=== PATIENT | male | born 1965 | race Hispanic/Latino ===

== ENCOUNTER 2020-11-25 08:29 | Day surgery (SDC) | payer OTHER ==
[2020-11-25] MEDS ORDERED: LIDOCAINE HCL 2% 100 MG/5 ML IJ ONE (08:30)
[2020-11-25] MEDS ORDERED: DIPRIVAN 200 MG/20 ML IV ONE (10:07)
--- NOTE | 2020-11-25 11:24 | XRAY ---
9 seconds fluoroscopy time in surgery for bilateral L4-S1 MBB.
--- NOTE | 2020-11-25 11:25 | XRAY ---
Indication: Bilateral L4-S1 MBB. Intraoperative fluoroscopy provided for 9 seconds. Single digital spot image submitted for interpretation demonstrates posterior needle tips projecting over the expected left and right L4-S1 nerve roots. Correlate with intraoperative findings/report.
[2020-11-25] MEDS ORDERED: Lactated Ringers 1,000 ML IV ONE (16:29)
== END 2020-11-25 10:37 | disposition home or self-care (01) ==
LOC: SDC-PAIN 08:29
PROVIDERS: ATTEND Psychiatry & Neurology Pain Medicine
DX: M47.816 Spondylosis without myelopathy or radiculopathy, lumbar region (principal); E11.9 Type 2 diabetes mellitus without complications; I10 Essential (primary) hypertension; I25.10 Atherosclerotic heart disease of native coronary artery without angina pectoris; G47.30 Sleep apnea, unspecified; Z79.899 Other long term (current) drug therapy
CPT/HCPCS: 64493; 64494; 72020; 77002; 82947; J2704

== ENCOUNTER 2021-01-20 07:49 | Day surgery (SDC) | payer OTHER ==
[2021-01-20] MEDS ORDERED: BUPIVACAINE 0.5% VIAL IJ ONE (07:50)
[2021-01-20] MEDS ORDERED: DIPRIVAN 200 MG/20 ML IV ONE (09:30)
--- NOTE | 2021-01-20 10:38 | XRAY ---
Indication: Bilateral L4-S1 MBB. Intraoperative fluoroscopy provided for 10 seconds. Single digital spot image submitted for interpretation demonstrates posterior needle tips projecting over the expected left and right L4-S1 nerve roots. Correlate with intraoperative findings/report.
--- NOTE | 2021-01-20 11:55 | XRAY ---
10 seconds of fluoroscopy was used in surgery for a bilateral L4-L5, L5-S1 MBB.
[2021-01-20] MEDS ORDERED: Lactated Ringers 1,000 ML IV ONE (16:00)
== END 2021-01-20 09:56 | disposition home or self-care (01) ==
LOC: SDC-PAIN 07:49
PROVIDERS: ATTEND Psychiatry & Neurology Pain Medicine
DX: M47.816 Spondylosis without myelopathy or radiculopathy, lumbar region (principal); I10 Essential (primary) hypertension; I25.10 Atherosclerotic heart disease of native coronary artery without angina pectoris; E11.9 Type 2 diabetes mellitus without complications; G47.30 Sleep apnea, unspecified; Z79.899 Other long term (current) drug therapy
CPT/HCPCS: 64493; 64494; 72020; 77002; 82947; J2704

== ENCOUNTER 2021-03-03 06:42 | Day surgery (SDC) | payer OTHER ==
[2021-03-03] MEDS ORDERED: Depo-Medrol 40 MG/ML IM ONE (06:43)
[2021-03-03] MEDS ORDERED: Xylocaine 1% Vial 30 ML PF IJ ONE (06:43)
[2021-03-03] MEDS ORDERED: BUPIVACAINE 0.5% VIAL IJ ONE (06:43)
[2021-03-03] MEDS ORDERED: DIPRIVAN 200 MG/20 ML IV ONE ×2 (07:52→08:12)
--- NOTE | 2021-03-03 10:06 | XRAY ---
Indication: Right L4-S1 RFA. Intraoperative fluoroscopy provided for 30 seconds. 3 digital spot images submitted for interpretation demonstrates posterior needle tips projecting over the expected right L4-S1 nerve roots. Correlate with intraoperative findings/report.
--- NOTE | 2021-03-03 10:11 | XRAY ---
30 seconds fluoroscopy time in surgery for right L4-S1 RFA.
[2021-03-03] MEDS ORDERED: Lactated Ringers 1,000 ML IV ONE (11:40)
== END 2021-03-03 08:38 | disposition home or self-care (01) ==
LOC: SDC-PAIN 06:42
PROVIDERS: ATTEND Psychiatry & Neurology Pain Medicine
DX: M47.816 Spondylosis without myelopathy or radiculopathy, lumbar region (principal); E11.9 Type 2 diabetes mellitus without complications; Z79.899 Other long term (current) drug therapy
CPT/HCPCS: 64635; 64636; 72100; 77002; 82947; J1030; J2001; J2704

== ENCOUNTER 2021-03-17 06:53 | Day surgery (SDC) | payer OTHER ==
[2021-03-17] MEDS ORDERED: BUPIVACAINE 0.5% VIAL IJ ONE (06:54)
[2021-03-17] MEDS ORDERED: Xylocaine 1% Vial 30 ML PF IJ ONE (06:54)
[2021-03-17] MEDS ORDERED: Depo-Medrol 40 MG/ML IM ONE (06:54)
[2021-03-17] MEDS ORDERED: DIPRIVAN 200 MG/20 ML IV ONE ×2 (07:58→08:24)
--- NOTE | 2021-03-17 10:18 | XRAY ---
Indication: Left L4-S1 RFA. Intraoperative fluoroscopy provided for 33 seconds. 3 digital spot image submitted for interpretation demonstrates posterior needle tips projecting over the expected left L4-S1 nerve roots. Correlate with intraoperative findings/report.
--- NOTE | 2021-03-17 12:43 | XRAY ---
33 seconds fluoroscopy time in surgery for left L4-S1 RFA.
[2021-03-17] MEDS ORDERED: Lactated Ringers 1,000 ML IV ONE (16:33)
== END 2021-03-17 08:48 | disposition home or self-care (01) ==
LOC: SDC-PAIN 06:53
PROVIDERS: ATTEND Psychiatry & Neurology Pain Medicine
DX: M47.817 Spondylosis without myelopathy or radiculopathy, lumbosacral region (principal); E11.9 Type 2 diabetes mellitus without complications; Z79.899 Other long term (current) drug therapy
CPT/HCPCS: 72100; 77002; 82947; J1030; J2001; J2704

== ENCOUNTER 2021-06-09 06:48 | Day surgery (SDC) | payer OTHER ==
[2021-06-09] MEDS ORDERED: BUPIVACAINE 0.5% VIAL IJ ONE (06:49)
[2021-06-09] MEDS ORDERED: Depo-Medrol 40 MG/ML IM ONE (06:49)
[2021-06-09] MEDS ORDERED: DIPRIVAN 200 MG/20 ML IV ONE (08:34)
--- NOTE | 2021-06-09 10:23 | XRAY ---
Indication: Bilateral SI joint injections. Intraoperative fluoroscopy provided for 36 seconds. 4 digital spot images submitted for interpretation demonstrates posterior needle tip projecting over the inferior left and right SI joints. Correlate with intraoperative findings/report. Incidental partially visualized left acetabular screw.
--- NOTE | 2021-06-09 10:44 | XRAY ---
36 seconds fluoroscopy time in surgery for injections of both SI joints.
[2021-06-09] MEDS ORDERED: Lactated Ringers 1,000 ML IV ONE (12:24)
== END 2021-06-09 09:05 | disposition home or self-care (01) ==
LOC: SDC-PAIN 06:48
PROVIDERS: ATTEND Psychiatry & Neurology Pain Medicine
DX: M46.1 Sacroiliitis, not elsewhere classified (principal); E11.9 Type 2 diabetes mellitus without complications; Z79.899 Other long term (current) drug therapy
CPT/HCPCS: 27096; 72202; 77002; 82947; G0260; J1030; J2704

== ENCOUNTER 2021-09-30 07:19 | Day surgery (SDC) | payer OTHER ==
[2021-09-30] MEDS ORDERED: BUPIVACAINE 0.5% VIAL IJ ONE (07:20)
[2021-09-30] MEDS ORDERED: Depo-Medrol 40 MG/ML IM ONE (07:20)
[2021-09-30] MEDS ORDERED: Lactated Ringers 1,000 ML IV ONE (08:15)
[2021-09-30] MEDS ORDERED: DIPRIVAN 200 MG/20 ML IV ONE (08:49)
--- NOTE | 2021-10-01 09:57 | XRAY ---
22 seconds fluoroscopy time in surgery for injections of both SI joints.
--- NOTE | 2021-10-04 08:53 | XRAY ---
Indication: Bilateral SI joint injection. Intraoperative fluoroscopy provided for 22 seconds. 5 digital spot image submitted for interpretation demonstrates posterior needle tip projecting over the inferior left and right SI joint. Correlate with intraoperative findings/report. Incidental partially visualized left hip arthroplasty.
== END 2021-09-30 09:10 | disposition home or self-care (01) ==
LOC: SDC-PAIN 07:19
PROVIDERS: ATTEND Psychiatry & Neurology Pain Medicine
DX: M46.1 Sacroiliitis, not elsewhere classified (principal); E11.9 Type 2 diabetes mellitus without complications; Z79.899 Other long term (current) drug therapy
CPT/HCPCS: 27096; 72202; 77002; 82947; G0260; J1030; J2704

== ENCOUNTER 2022-01-12 07:42 | Day surgery (SDC) | payer OTHER ==
[2022-01-12] MEDS ORDERED: Marcaine Mpf 0.5% Vial 30 Ml IJ ONE (07:43)
[2022-01-12] MEDS ORDERED: Depo-Medrol 40 MG/ML IM ONE (07:43)
[2022-01-12] MEDS ORDERED: DIPRIVAN 200 MG/20 ML IV ONE (09:05)
[2022-01-12] MEDS ORDERED: Lactated Ringers 1,000 ML IV ONE (10:23)
--- NOTE | 2022-01-12 11:38 | XRAY ---
Indication: Bilateral SI joint injection. Intraoperative fluoroscopy provided for 18 seconds. 4 digital spot image submitted for interpretation demonstrates posterior needle tip projecting over the inferior left and right SI joint. Correlate with intraoperative findings/report. Incidental partially visualized left hip arthroplasty.
--- NOTE | 2022-01-12 12:00 | XRAY ---
18 seconds of fluoroscopy was used in surgery for a bilateral sacroiliac joint injection.
== END 2022-01-12 09:27 | disposition home or self-care (01) ==
LOC: SDC-PAIN 07:42
PROVIDERS: ATTEND Psychiatry & Neurology Pain Medicine
DX: M46.1 Sacroiliitis, not elsewhere classified (principal); E11.9 Type 2 diabetes mellitus without complications; Z79.899 Other long term (current) drug therapy
CPT/HCPCS: 27096; 72202; 77002; 82947; G0260; J1030; J2704

== ENCOUNTER 2022-04-06 07:26 | Day surgery (SDC) | payer OTHER ==
[2022-04-06] MEDS ORDERED: Depo-Medrol 40 MG/ML IM ONE (07:27)
[2022-04-06] MEDS ORDERED: XYLOCAINE-MPF 1% 5ML SDV IJ ONE (07:27)
[2022-04-06] MEDS ORDERED: DIPRIVAN 200 MG/20 ML IV ONE (08:56)
--- NOTE | 2022-04-06 10:01 | XRAY ---
Indication: Caudal TYSON. Intraoperative fluoroscopy provided for 18 seconds. 2 digital spot images submitted for interpretation demonstrates caudal needle tip projecting over the mid sacrum. Small amount of contrast injected for needle tip placement. Correlate with intraoperative findings/report.
--- NOTE | 2022-04-06 10:31 | XRAY ---
18 seconds of fluoroscopy was used in surgery for a caudal TYSON.
[2022-04-06] MEDS ORDERED: Lactated Ringers 1,000 ML IV ONE (10:57)
== END 2022-04-06 09:30 | disposition home or self-care (01) ==
LOC: SDC-PAIN 07:26
PROVIDERS: ATTEND Psychiatry & Neurology Pain Medicine
DX: M54.16 Radiculopathy, lumbar region (principal); E11.9 Type 2 diabetes mellitus without complications; Z79.899 Other long term (current) drug therapy
CPT/HCPCS: 62323; 72220; 77003; 82947; J1030; J2704; Q9966

== ENCOUNTER 2022-08-24 07:43 | Day surgery (SDC) | payer OTHER ==
[2022-08-24] MEDS ORDERED: Depo-Medrol 40 MG/ML IM ONE (07:44)
[2022-08-24] MEDS ORDERED: Sodium Chloride 0.9(Preservative Free) 10 ML IJ ONE (07:44)
[2022-08-24] MEDS ORDERED: Pepcid 20 MG VIAL IV ONE (08:21)
[2022-08-24] MEDS ORDERED: Reglan 10 MG/2 ML ONE (08:21)
[2022-08-24] MEDS ORDERED: DIPRIVAN 200 MG/20 ML IV ONE (09:03)
--- NOTE | 2022-08-24 09:54 | XRAY ---
15 seconds of fluoroscopy was used in surgery for a caudal TYSON.
--- NOTE | 2022-08-24 09:54 | XRAY ---
Indication: Caudal TYSON. Intraoperative fluoroscopy provided for 15 seconds. 3 digital spot images submitted for interpretation demonstrates caudal needle tip projecting mid sacrum. Small amount of contrast injected for needle tip placement. Correlate with intraoperative findings/report.
[2022-08-24] MEDS ORDERED: Lactated Ringers 1,000 ML IV ONE (13:10)
== END 2022-08-24 09:30 | disposition home or self-care (01) ==
LOC: SDC-PAIN 07:43
PROVIDERS: ATTEND Psychiatry & Neurology Pain Medicine
DX: M46.1 Sacroiliitis, not elsewhere classified (principal); E11.9 Type 2 diabetes mellitus without complications; Z79.899 Other long term (current) drug therapy
CPT/HCPCS: 62323; 72220; 77003; 82947; J1030; J2704; Q9966

== ENCOUNTER 2023-02-08 07:51 | Day surgery (SDC) | payer OTHER ==
[2023-02-08] MEDS ORDERED: BUPIVACAINE 0.5% VIAL IJ ONE (07:52)
[2023-02-08] MEDS ORDERED: Depo-Medrol 40 MG/ML IM ONE (07:52)
[2023-02-08] MEDS ORDERED: DIPRIVAN 200 MG/20 ML IV ONE (09:31)
[2023-02-08] MEDS ORDERED: Xylocaine-Mpf 2% 5 Ml Vial ONE (09:36)
[2023-02-08] MEDS ORDERED: Lactated Ringers 1,000 ML IV ONE (10:51)
--- NOTE | 2023-02-08 11:52 | XRAY ---
Indication: Right SI joint and right hip injection. Intraoperative fluoroscopy provided for 27 seconds. 4 digital spot image submitted for interpretation demonstrates posterior needle tip project over the right SI joint. Second needle tip projects lateral to right femur neck with small amount of contrast injected for needle tip placement. Correlate with intraoperative findings/report.
--- NOTE | 2023-02-08 13:02 | XRAY ---
27 seconds of fluoroscopy was used in surgery for a right sacroiliac joint and right intra-articular hip injection.
== END 2023-02-08 10:03 | disposition home or self-care (01) ==
LOC: SDC-PAIN 07:51
PROVIDERS: ATTEND Psychiatry & Neurology Pain Medicine
DX: M16.11 Unilateral primary osteoarthritis, right hip (principal); M46.1 Sacroiliitis, not elsewhere classified; E11.9 Type 2 diabetes mellitus without complications; Z79.899 Other long term (current) drug therapy
CPT/HCPCS: 20610; 27096; 73501; 77002; 82947; G0260; J1030; J2704; Q9966

== ENCOUNTER 2023-06-14 06:47 | Day surgery (SDC) | payer OTHER ==
[2023-06-14] MEDS ORDERED: Depo-Medrol 40 MG/ML IM ONE (06:48)
[2023-06-14] MEDS ORDERED: LIDOCAINE HCL 1% 50 MG/5 ML VL PF IJ ONE (06:48)
[2023-06-14] MEDS ORDERED: BUPIVACAINE 0.5% VIAL IJ ONE (06:48)
[2023-06-14] MEDS ORDERED: DIPRIVAN 200 MG/20 ML IV ONE ×2 (08:04→08:18)
[2023-06-14] MEDS ORDERED: Lactated Ringers 1,000 ML IV ONE (10:32)
--- NOTE | 2023-06-14 11:44 | XRAY ---
Indication: Right L4-S1 RFA. Intraoperative fluoroscopy provided for 31 seconds. 8 digital spot images submitted for interpretation demonstrates posterior needle tips projecting over the expected right L4-S1 nerve roots. Correlate with intraoperative findings/report.
--- NOTE | 2023-06-14 11:50 | XRAY ---
31 seconds of fluoroscopy was used in surgery for a right L4-S1 RFA.
== END 2023-06-14 08:43 | disposition home or self-care (01) ==
LOC: SDC-PAIN 06:47
PROVIDERS: ATTEND Psychiatry & Neurology Pain Medicine
DX: M47.816 Spondylosis without myelopathy or radiculopathy, lumbar region (principal); E11.9 Type 2 diabetes mellitus without complications; Z79.899 Other long term (current) drug therapy
CPT/HCPCS: 64635; 64636; 72100; 77002; 82947; J1030; J2001; J2704

== ENCOUNTER 2023-07-05 06:45 | Day surgery (SDC) | payer OTHER ==
[2023-07-05] MEDS ORDERED: XYLOCAINE-MPF 1% 5ML SDV IJ ONE (06:46)
[2023-07-05] MEDS ORDERED: BUPIVACAINE 0.5% VIAL IJ ONE (06:46)
[2023-07-05] MEDS ORDERED: Depo-Medrol 40 MG/ML IM ONE (06:46)
[2023-07-05] MEDS ORDERED: DIPRIVAN 200 MG/20 ML IV ONE ×2 (08:07→08:14)
[2023-07-05] MEDS ORDERED: Lactated Ringers 1,000 ML IV ONE (13:39)
--- NOTE | 2023-07-05 20:52 | XRAY ---
Indication: Left L4-S1 RFA. Intraoperative fluoroscopy provided for 23 seconds. 3 digital spot image submitted for interpretation demonstrates posterior needle tip projecting over the expected left L4-S1 nerve roots. Correlate with intraoperative findings/report.
--- NOTE | 2023-07-05 21:41 | XRAY ---
23 seconds of fluoroscopy was used in surgery for a left L4-S1 RFA.
== END 2023-07-05 08:39 | disposition home or self-care (01) ==
LOC: SDC-PAIN 06:45
PROVIDERS: ATTEND Psychiatry & Neurology Pain Medicine
DX: M47.816 Spondylosis without myelopathy or radiculopathy, lumbar region (principal); E11.9 Type 2 diabetes mellitus without complications; Z79.899 Other long term (current) drug therapy
CPT/HCPCS: 64635; 64636; 72100; 77002; 82947; J1030; J2704

== ENCOUNTER 2024-01-29 12:52 | Day surgery (SDC) | payer OTHER ==
--- NOTE | 2024-01-29 08:16 | HP ---
HISTORY AND PHYSICAL HISTORY OF PRESENT ILLNESS: A 58-year-old with prior colonoscopy. No bloody stools. No change in bowel habits PAST MEDICAL HISTORY: Hypertension, [place], type 2 diabetes, hyperlipidemia, heart disease. HOME MEDICATIONS: Clopidogrel, clonidine, losartan, Nitrostat, amlodipine, labetalol, ezetimibe, metformin. ALLERGIES: No known drug allergies. SOCIAL HISTORY: Half-pack per day smoker. No alcohol abuse. FAMILY HISTORY: Brother , not from colon cancer but had colon cancer. Esophageal cancer, lung disease, heart disease, diabetes, liver cancer. Brother had colon cancer. REVIEW OF SYSTEMS: Twelve systems reviewed. No chest pain or palpitations. Other systems negative or noncontributory as above and per preadmission questionnaire. PHYSICAL EXAMINATION: GENERAL: Height 5 feet 11 inch, BMI 29.29. No acute distress. HEENT: Sclerae anicteric. NECK: No JVD. CARDIOVASCULAR: Regular rate and rhythm. CHEST: Equal excursion, nonlabored breathing. ABDOMEN: Soft. SKIN: Dry. EXTREMITIES: No cyanosis or edema. NEUROLOGIC: Alert and oriented, moving all extremities symmetrically. PSYCHIATRIC: Appropriate mood and affect. RECTAL: Deferred until the time of endoscopy exam. IMPRESSION: Family history of colon cancer. The patient is in need of screening colonoscopy. Risks were explained in detail including but not limited to risk of bleeding or infection, risk of bowel injury or perforation, risk of missed or nondiagnosis or incomplete exam possibly requiring barium enema or other studies or procedures, risk of bowel prep but not limited to. We will proceed with outpatient colonoscopy under MAC anesthesia. Otherwise, continue medication for hypertension, hyperlipidemia, coronary artery disease, diabetes.
[2024-01-29] MEDS ORDERED: Lactated Ringers 1,000 ML IV ONE (13:25)
[2024-01-29] MEDS: Lactated Ringers 1,000 ML IV SCH (13:53)
[2024-01-29] MEDS ORDERED: Xylocaine-Mpf 2% 5 Ml Vial ONE (14:26)
[2024-01-29] MEDS ORDERED: DIPRIVAN 200 MG/20 ML IV ONE ×2 (14:26→14:41)
[2024-01-29] MEDS ORDERED: Versed 2 MG/2 ML Injection ONE (14:30)
[2024-01-29 15:35] VITALS: TEMP 97.4; O2SAT 100
[2024-01-29 15:47] VITALS: BP 101/69; PULSE 60; RESP 16
--- NOTE | 2024-01-30 11:46 | OP ---
SURGERY DATE/TIME: 01/29/2024 2700 - 7007 PREOPERATIVE DIAGNOSES: 1) Screening colonoscopy. 2) Family history of colon cancer. POSTOPERATIVE DIAGNOSES: 1) Small vaguely raised lesion versus very early polyp in transverse colon. 2) ASA class III. 3) Withdrawal time 8 minutes. 4) Bowel preparation, fair. 5) Few diverticula. PROCEDURES: 1) Colonoscopy to cecum. 2) Hot biopsy of small raised lesion versus early polyp in transverse colon. SURGEON: Jackson Ponce MD. ANESTHESIA: MAC. ESTIMATED BLOOD LOSS: Minimal. INDICATIONS: As noted above. Consent was obtained. DESCRIPTION OF PROCEDURE AND FINDINGS: The patient was taken to the operating room and MAC anesthesia was induced after official time-out for planned procedure. Digital rectal exam did not reveal any rectal masses. Videocolonoscope inserted and passed up through the slightly tortuous sigmoid, descending, transverse, ascending colon. With external pressure, the scope was passed around to the cecum. Appendiceal orifice and valve were well visualized and photo documented. Prep overall was fair. Had a little bit of liquidy, semi-solid stool throughout the colon and once again, a very small lesion. This was suction irrigated as clear as possible. Scope was carefully withdrawn over the next 8 minutes or so. No signs of any large polyps, masses, or obstructing lesions. There was just a small, vague, raised lesion versus early polyp or hyperplastic lesion in the transverse colon. This was removed with hot biopsy forceps. Good hemostasis noted. He had a few small diverticula in the left colon. There were no signs of any large polyps, masses, or obstructing lesions. The scope was withdrawn. There were no immediate complications. Findings were discussed with family in the waiting area. Given his family history of colon cancer, if this path is benign, likely to recommend followup colonoscopy in 5 years. Await final path results.
== END 2024-01-29 15:50 | disposition home or self-care (01) ==
LOC: SDC 12:52
PROVIDERS: ATTEND Surgery
DX: Z12.11 Encounter for screening for malignant neoplasm of colon (principal); Z80.0 Family history of malignant neoplasm of digestive organs; E11.9 Type 2 diabetes mellitus without complications; K63.5 Polyp of colon; K57.90 Diverticulosis of intestine, part unspecified, without perforation or abscess without bleeding
CPT/HCPCS: 82947; J2250; J2704

== ENCOUNTER 2024-03-13 07:36 | Day surgery (SDC) | payer OTHER ==
[2024-03-13] MEDS ORDERED: Depo-Medrol 40 MG/ML IM ONE (07:37)
[2024-03-13] MEDS ORDERED: Sodium Chloride 0.9(Preservative Free) 10 ML IJ ONE (07:37)
[2024-03-13] MEDS ORDERED: Lactated Ringers 1,000 ML IV ONE (09:18)
[2024-03-13] MEDS ORDERED: DIPRIVAN 200 MG/20 ML IV ONE (09:19)
--- NOTE | 2024-03-13 10:56 | XRAY ---
Indication: Caudal TYSON. Intraoperative fluoroscopy provided for 23 seconds. 2 digital spot images submitted for interpretation demonstrates caudal needle tip projecting mid sacrum. Small amount of contrast injected for needle tip placement. Correlate with intraoperative findings/report.
--- NOTE | 2024-03-13 10:57 | XRAY ---
23 seconds of fluoroscopy was used in surgery for a caudal TYSON.
== END 2024-03-13 10:00 ==
LOC: SDC-PAIN 07:36
PROVIDERS: ATTEND Psychiatry & Neurology Pain Medicine
DX: M54.16 Radiculopathy, lumbar region (principal); E11.9 Type 2 diabetes mellitus without complications
CPT/HCPCS: 62323; 72220; 77003; 82947; J2704; Q9966

== ENCOUNTER 2024-05-01 07:41 | Day surgery (SDC) | payer OTHER ==
[2024-05-01] MEDS ORDERED: Decadron 4 MG INJ IV ONE (07:42)
[2024-05-01] MEDS ORDERED: Sodium Chloride 0.9(Preservative Free) 10 ML IJ ONE (07:42)
[2024-05-01] MEDS ORDERED: DIPRIVAN 200 MG/20 ML IV ONE (08:47)
[2024-05-01] MEDS ORDERED: MORPHINE SULFATE 2 MG INJ ONE (09:19)
[2024-05-01] MEDS ORDERED: Lactated Ringers 1,000 ML IV ONE (09:54)
--- NOTE | 2024-05-01 10:49 | XRAY ---
Indication: Left L4-S1 transforaminal TYSON. Intraoperative fluoroscopy provided for 32 seconds. 4 digital spot images submitted for interpretation demonstrates posterior needle tips projecting over the expected left L4 and L5 nerve root. Small amount of contrast injected for needle tip placement. Correlate with intraoperative findings/report.
--- NOTE | 2024-05-01 13:08 | XRAY ---
32 seconds of fluoroscopy was used in surgery for a left L4-S1 transforaminal TYSON.
== END 2024-05-01 09:41 | disposition home or self-care (01) ==
LOC: SDC-PAIN 07:41
PROVIDERS: ATTEND Psychiatry & Neurology Pain Medicine
DX: M54.16 Radiculopathy, lumbar region (principal); E11.9 Type 2 diabetes mellitus without complications
CPT/HCPCS: 64483; 64484; 72100; 77003; 82947; J1100; J2270; J2704; Q9966

== ENCOUNTER 2024-06-12 06:48 | Day surgery (SDC) | payer OTHER ==
[2024-06-12] MEDS ORDERED: BUPIVACAINE 0.5% VIAL IJ ONE (06:49)
[2024-06-12] MEDS ORDERED: Depo-Medrol 40 MG/ML IM ONE (06:49)
[2024-06-12] MEDS ORDERED: DIPRIVAN 200 MG/20 ML IV ONE (08:21)
--- NOTE | 2024-06-12 10:16 | XRAY ---
Indication: Right shoulder and subacromial bursa injection. Intraoperative fluoroscopy provided for 20 seconds. 3 digital spot image submitted for interpretation demonstrates needle tip projecting over right glenohumeral joint superiorly. Second needle tip subacromial. Small amount of contrast injected for both needle tip placement. Correlate with intraoperative findings/report.
--- NOTE | 2024-06-12 10:16 | XRAY ---
Indication: Left shoulder and subacromial bursa injection. Intraoperative fluoroscopy provided for 15 seconds. 2 digital spot image submitted for interpretation demonstrates needle tip projecting over left glenohumeral joint superiorly. Second needle tip subacromial. Small amount of contrast injected for both needle tip placement. Correlate with intraoperative findings/report.
--- NOTE | 2024-06-12 11:44 | XRAY ---
20 seconds of fluoroscopy was used in surgery for a right intra-articular shoulder and subacromial bursa injection.
--- NOTE | 2024-06-12 11:45 | XRAY ---
15 seconds of fluoroscopy was used in surgery for left intra-articular shoulder and subacromial bursa injection.
== END 2024-06-12 08:52 | disposition home or self-care (01) ==
LOC: SDC-PAIN 06:48
PROVIDERS: ATTEND Psychiatry & Neurology Pain Medicine
DX: M19.012 Primary osteoarthritis, left shoulder (principal); M19.011 Primary osteoarthritis, right shoulder; E11.9 Type 2 diabetes mellitus without complications; M75.52 Bursitis of left shoulder; M75.51 Bursitis of right shoulder
CPT/HCPCS: 73030; 77002; 82947; J2704

== ENCOUNTER 2024-10-30 06:46 | Day surgery (SDC) | payer OTHER ==
[2024-10-30] MEDS ORDERED: Sodium Chloride 0.9(Preservative Free) 10 ML IJ ONE (06:47)
[2024-10-30] MEDS ORDERED: dexAMETHasone sodium phosphate IJ ONE (06:47)
[2024-10-30] MEDS ORDERED: propofoL IV ONE (08:59)
--- NOTE | 2024-10-30 10:22 | XRAY ---
Indication: Right L4-S1 transforaminal TYSON. Intraoperative fluoroscopy provided for 27 seconds. 4 digital spot images submitted for interpretation demonstrates posterior needle tips projecting expected right L4 and L5 nerve roots. Small amount of contrast injected for needle tip placement. Correlate with intraoperative findings/report.
--- NOTE | 2024-10-30 10:26 | XRAY ---
27 seconds of fluoroscopy was used in surgery for a right L4-S1 transforaminal TYSON.
== END 2024-10-30 09:36 | disposition home or self-care (01) ==
LOC: SDC-PAIN 06:46
PROVIDERS: ATTEND Psychiatry & Neurology Pain Medicine
DX: M54.16 Radiculopathy, lumbar region (principal); E11.9 Type 2 diabetes mellitus without complications
CPT/HCPCS: 64483; 64484; 72100; 82947; J1100; J2704